=== PATIENT | female | born 1945 | race Two or more races ===

== ENCOUNTER 2017-10-07 12:03 | Emergency (ER) | payer SELFPAY ==
[~2017-10-07] VITALS: Ht 162.6 cm; Wt 62.6 kg
[2017-10-07 12:12] VITALS: Ht 162.6 cm; Wt 62.6 kg
[2017-10-07 13:02] LABS: BASOPHIL % 0.6 % (0-2); PLATELET COUNT 260 x10^3mcL (130-400); RED CELL DISTRIBUTION WIDTH 13.2 % (11.5-14.5)
[2017-10-07 13:05] LABS: CALCIUM 10.1 mg/dL (8.5-10.1); CARBON DIOXIDE 31.5 mmol/L (21-32); CHLORIDE SERUM 98 mmol/L (98-107); CREATININE SERUM 1.3 mg/dL (0.6-1.0); GLUCOSE SERUM 422 mg/dL (74-106); POTASSIUM SERUM 4.8 mmol/L (3.5-5.1); SODIUM SERUM 137 mmol/L (136-145)
[2017-10-07 13:10] LABS: ALBUMIN 3.9 g/dL (3.4-5.0); ALKALINE PHOSPHATASE 111 U/L (46-116); ALT/SGPT 10 U/L (14-59); AMYLASE 28 U/L (25-115); AST/SGOT 13 U/L (15-37); BILIRUBIN TOTAL 0.66 mg/dL (0.20-1.00); LIPASE 129 IU/L (73-393); TOTAL PROTEIN, SERUM 7.2 g/dL (6.4-8.2)
[2017-10-07 14:19] VITALS: BP 132/61
== END 2017-10-07 14:19 | disposition home or self-care (01) ==
LOC: ED 12:03
PROVIDERS: Emergency Medicine
DX: K59.00 Constipation, unspecified (principal); I10 Essential (primary) hypertension; E11.9 Type 2 diabetes mellitus without complications; Z90.710 Acquired absence of both cervix and uterus; Z98.890 Other specified postprocedural states
CPT/HCPCS: 36415; J1885

== ENCOUNTER 2017-10-14 11:22 | Emergency (ER) | payer SELFPAY ==
[~2017-10-14] VITALS: Ht 157.5 cm; Wt 62.6 kg
[2017-10-14 11:38] VITALS: BP 152/96; Ht 157.5 cm; Wt 62.6 kg
== END 2017-10-14 12:01 | disposition home or self-care (01) ==
LOC: ED 11:22
DX: B02.9 Zoster without complications (principal); I10 Essential (primary) hypertension; E11.9 Type 2 diabetes mellitus without complications; Z90.710 Acquired absence of both cervix and uterus

== ENCOUNTER 2017-12-13 17:20 | Emergency (ER) | payer SELFPAY ==
[~2017-12-13] VITALS: Ht 152.4 cm; Wt 63.5 kg
[2017-12-13 17:36] VITALS: BP 179/86; Ht 152.4 cm; Wt 63.5 kg
== END 2017-12-13 19:05 | disposition home or self-care (01) ==
LOC: ED 17:20
DX: S52.572A Other intraarticular fracture of lower end of left radius, initial encounter for closed fracture (principal); I10 Essential (primary) hypertension; E11.9 Type 2 diabetes mellitus without complications; Z88.0 Allergy status to penicillin; W01.0XXA Fall on same level from slipping, tripping and stumbling without subsequent striking against object, initial encounter; Y93.89 Activity, other specified; Y92.89 Other specified places as the place of occurrence of the external cause; Y99.8 Other external cause status
CPT/HCPCS: J1885; Q0092